=== PATIENT | female | born 1965 | race Caucasian/White ===

== ENCOUNTER 2017-03-10 08:01 | Day surgery (SDC) | payer OTHER ==
[2017-03-10] MEDS ORDERED: LACTATED RINGERS 1,000 ML IV ONE ×2 (08:40→08:45)
[2017-03-10] MEDS ORDERED: MIDAZOLAM 2 MG/2 ML VIAL IVP ONE (08:45)
[2017-03-10] MEDS ORDERED: fentaNYL 250 MCG/5 ML VIAL IVP ONE (08:45)
== END 2017-03-10 08:02 | disposition home or self-care (01) ==
PROC: 0DBH8ZX Excision of Cecum, Via Natural or Artificial Opening Endoscopic, Diagnostic (ICD-10-PCS; principal; 2017-03-10 09:00)
DX: Z12.11 Encounter for screening for malignant neoplasm of colon (principal); Z88.2 Allergy status to sulfonamides; F41.9 Anxiety disorder, unspecified; F32.9 Major depressive disorder, single episode, unspecified; I10 Essential (primary) hypertension; E03.9 Hypothyroidism, unspecified; Z83.3 Family history of diabetes mellitus; K64.8 Other hemorrhoids
CPT/HCPCS: 45380; J3010; J7120

== ENCOUNTER 2017-09-08 16:02 | Emergency (ER) | payer OTHER | END 2017-09-08 16:11 | disposition left against medical advice (07) | LOC: ED 16:02 | DX: Z53.21 Procedure and treatment not carried out due to patient leaving prior to being seen by health care provider (principal) ==

== ENCOUNTER 2019-01-14 11:03 | Outpatient (CLI) | payer OTHER ==
--- NOTE | 2019-01-14 12:35 | XRAY Report ---
Reason: RIGHT FOOT INJURY,FRACTURE VS DISLOCATION Procedure Date: 01/14/2019 Accession Number: [id number] / [id number] Procedure: XR - Foot 3 View RT CPT Code: FULL RESULT: EXAM: RIGHT FOOT RADIOGRAPHY EXAM DATE: 01/14/2019 12:20 PM. CLINICAL HISTORY: RIGHT FOOT Injury, fracture VS DISLOCATION. Patient jammed foot yesterday. Complaining of fifth digit pain. COMPARISON: None. TECHNIQUE: 3 nonweightbearing views of the right foot. 2 additional oblique views of the fifth digit are provided. FINDINGS: Bones: There is an acute nondisplaced oblique fracture of the shaft of the proximal phalanx of the fifth toe. Alignment is near anatomic. The remainder of visualized bones appear intact. No bone lesion. There is a bipartite medial sesamoid. Joints: Normal. No subluxations. Soft Tissues: There is soft tissue swelling of the fifth toe. IMPRESSION: Acute nondisplaced oblique fracture of the shaft of the proximal phalanx of the fifth toe. [facility] The call report notification system was initiated by Dr. Kem Werner at 12:33 PM on 01/14/2019. ADDENDUM: 01/14/19 13:17 The above findings were discussed with Dayna Bonds by Dr. Kem Werner at 01:17 PM on 01/14/2019.
== END 2019-01-14 11:04 | disposition home or self-care (01) ==
LOC: DI 11:03
PROVIDERS: ATTEND Family Medicine
DX: S92.514A Nondisplaced fracture of proximal phalanx of right lesser toe(s), initial encounter for closed fracture (principal)

== ENCOUNTER 2020-10-24 08:04 | Outpatient (CLI) | payer OTHER | END 2020-10-24 08:05 | disposition home or self-care (01) | LOC: COV 08:04 | PROVIDERS: ATTEND Family Medicine | DX: Z20.828 Contact with and (suspected) exposure to other viral communicable diseases (principal) ==

== ENCOUNTER 2023-02-28 14:41 | Outpatient (CLI) | payer OTHER ==
[2023-02-28 20:10] LABS: BASOPHILS # (AUTO) 0.1 10^3/uL (0.0-0.1); BASOPHILS % (AUTO) 0.7 %; EOSINOPHILS # (AUTO) 0.1 10^3/uL (0.0-0.7); EOSINOPHILS % (AUTO) 1.4 %; HCT - HEMATOCRIT 39.7 % (37.0-47.0); HGB - HEMOGLOBIN 13.1 g/dL (12.0-16.0); LYMPHOCYTES % (AUTO) 25.5 %; MEAN CORPUSCULAR VOLUME 94.1 fL (81.0-99.0); MONOCYTES # (AUTO) 0.4 10^3/uL (0.0-1.0); MONOCYTES % (AUTO) 5.6 %; NEUTROPHILS # (AUTO) 5.1 10^3/uL (1.5-6.6); NEUTROPHILS % (AUTO) 66.5 %; PLT - PLATELET COUNT 330 10^3/uL (130-450); RED BLOOD COUNT 4.22 10^6/uL (4.20-5.40); RED CELL DISTRIBUTION WIDTH 12.5 % (12.0-15.0); WHITE BLOOD COUNT 7.7 x10^3/uL (4.8-10.8)
[2023-02-28 20:35] LABS: ALBUMIN 4.2 g/dL (3.2-5.5); ALBUMIN/GLOBULIN RATIO 1.4 (1.0-2.2); ALKALINE PHOSPHATASE 76 IU/L (42-121); ALT ALANINE AMINOTRANSFERASE 24 IU/L (10-60); AST ASPARTATE AMINOTRANSFERASE 28 IU/L (10-42); BILIRUBIN,TOTAL 0.3 mg/dL (0.2-1.0); BUN - BLOOD UREA NITROGEN 23 mg/dL (6-20); CALCIUM 9.4 mg/dL (8.5-10.3); CARBON DIOXIDE - CO2 27 mmol/L (21-32); CHLORIDE 106 mmol/L (101-111); CREATININE 0.8 mg/dL (0.4-1.0); GFR - MDRD 74 (>89); GLUCOSE 138 mg/dL (70-100); POTASSIUM 3.9 mmol/L (3.5-5.0); SODIUM 140 mmol/L (135-145); TOTAL PROTEIN 7.2 g/dL (6.7-8.2)
[2023-02-28 20:46] LABS: THYROID STIMULATING HORMONE 1.86 uIU/mL (0.34-5.60)
[2023-02-28 20:48] LABS: FREE T3 3.24 pg/mL (2.5-3.9); FREE T4 (FREE THYROXINE) 0.84 ng/dL (0.58-1.64)
[2023-02-28 20:53] LABS: FERRITIN 95.1 ng/mL (11.0-306.8)
[2023-02-28 21:50] LABS: CRP - C-REACTIVE PROTEIN < 1.0 mg/dL (0-1.0)
[2023-02-28 22:24] LABS: ESTIMATED AVERAGE GLUCOSE 111 mg/dL (70-100); HEMOGLOBIN A1c% 5.5 % (4.27-6.07)
[2023-03-03 10:08] LABS: VITAMIN D 25-HYDROXY 75.1 ng/mL (30.0-100.0)
== END 2023-02-28 14:42 | disposition home or self-care (01) ==
LOC: LAB.S 14:41
PROVIDERS: ATTEND Family Medicine
DX: R53.83 Other fatigue (principal); E03.9 Hypothyroidism, unspecified; E78.5 Hyperlipidemia, unspecified; R73.09 Other abnormal glucose; E55.9 Vitamin D deficiency, unspecified; D64.9 Anemia, unspecified
CPT/HCPCS: 36415; 80053; 82306; 82626; 82728; 83036; 83090; 84439; 84443; 84480; 84481; 84482; 85025; 86140

== ENCOUNTER 2023-12-29 11:28 | Outpatient (CLI) | payer OTHER ==
[2023-12-29 16:37] LABS: ALBUMIN 4.2 g/dL (3.2-5.5); ALBUMIN/GLOBULIN RATIO 1.4 (1.0-2.2); BILIRUBIN,TOTAL 0.4 mg/dL (0.2-1.0); CALCIUM 9.3 mg/dL (8.5-10.3); CREATININE 0.7 mg/dL (0.6-1.3); CRP HIGH SENSITIVITY 6.82 mg/L; POTASSIUM 3.7 mmol/L (3.5-4.5); TOTAL PROTEIN 7.1 g/dL (6.4-8.9)
[2023-12-29 20:38] LABS: ESTIMATED AVERAGE GLUCOSE 114 mg/dL (70-100); HEMOGLOBIN A1c% 5.6 % (4.27-6.07)
== END 2023-12-29 11:29 | disposition home or self-care (01) ==
LOC: LAB.S 11:28
PROVIDERS: ATTEND Naturopath
DX: I10 Essential (primary) hypertension (principal); R73.09 Other abnormal glucose; Z68.36 Body mass index [BMI] 36.0-36.9, adult; E72.11 Homocystinuria; R53.83 Other fatigue
CPT/HCPCS: 36415; 80053; 82626; 83036; 83090; 86141